=== PATIENT | female | born 1945 | race African-American/Black ===

== ENCOUNTER → 2017-10-14 | Day surgery (SDC) | payer MEDICARE ==
[2017-10-11 12:54] LABS: BASOPHILS # (AUTO) 0.1 (0.0-0.1); BASOPHILS % 0.8 % (0.0-1.0); HEMATOCRIT 38.1 % (34.2-44.1); HEMOGLOBIN 12.9 g/dL (12.0-16.0); LYMPHOCYTES % 31.7 % (18.0-39.1); MEAN CORPUSCULAR HEMOGLOBIN 29.4 pg (28-32); MEAN CORPUSCULAR HGB CONC 33.9 g/dL (31-35); MEAN CORPUSCULAR VOLUME 86.8 fL (81-99); MONOCYTES # (AUTO) 0.7 (0.2-0.8); MONOCYTES % 11.7 % (4.4-11.3); NEUTROPHILS # (AUTO) 3.5 (2.1-6.9); NEUTROPHILS % 55.6 % (38.7-80.0); PLATELET COUNT 220 x10e3/uL (140-360); RED BLOOD COUNT 4.39 x10e6/uL (3.6-5.1); RED CELL DISTRIBUTION WIDTH 13.9 % (11.7-14.4)
[2017-10-11 13:12] LABS: ANION GAP 13.5 mmol/L (8-16); BLOOD UREA NITROGEN 16 mg/dL (7-26); BUN/CREATININE RATIO 16 (6-25); CALCIUM 9.4 mg/dL (8.4-10.2); CARBON DIOXIDE 27 mmol/L (22-29); CHLORIDE 106 mmol/L (98-107); CREATININE, SERUM 1.02 mg/dL (0.57-1.11); EST GLOMERULAR FILTRATION RATE > 60 ML/MIN (60-); GLUCOSE 91 mg/dL (74-118); POTASSIUM 4.5 mmol/L (3.5-5.1); SODIUM 142 mmol/L (136-145)
--- NOTE | 2017-10-11 13:19 | Diagnostic Imaging Report ---
PROCEDURE: X-RAY CHEST, TWO VIEWS COMPARISON: None. INDICATIONS: PRE OPERATIVE CHEST FOR KNEE SURGERY FINDINGS: LUNGS: No mass or infiltrate. Pulmonary vascular markings are normal. PLEURA: No effusions or pneumothorax. HEART \T\ MEDIASTINUM: The heart is top normal in size. BONES \T\ SOFT TISSUES: Linear structure in the anterior upper abdomen measures 2.3 cm in length, visualized only on the lateral image and may or may not be within the patient. The osseous structures are unremarkable. CONCLUSION: No acute thoracic abnormality. Radiodensity in the upper anterior abdomen of uncertain etiology. Dictated by: Sabas Banda M.D. on 10/11/2017 at 13:29 Electronically approved by: Sabas Banda M.D. on 10/11/2017 at 13:29
[~2017-10-14] MED LIST: ACIDOPHILUS PO; BIOTIN2500 MCG PO; BUPIVACAINE HCL 0.5% INJ 30 ML VIAL INJ ONE; CALCIUM 600 +1 EAC2 PO; CEFAZOLIN SOD 2 GM/D5W 50ML 50 ML IV ONE; CENTRUM SILVER1 EAC3 PO; DEXAMETHASONE SOD PHOS INJ 4 MG/ML VIAL ONE; EVENING PRIMRO1 EACH PO; EVISTA60 MG PO; FENTANYL CITRATE/PF 100MCG/2 ML INJ ONE; FEOSOL PO; HYDROCHLOROTHIAZIDE PO; HYDROXYCHLOROQ200 MG PO; LIDOCAINE HCL 2% LOCAL INJ 5 ML SDV VIAL INJ ONE; MORPHINE SULFATE 2 MG/ML SYR ONE; OMEGA 3 FISH OIL PO; ONDANSETRON HCL INJ 2 MG/ML VIAL ONE; PANTOPRAZOLE SO40 MG PO; POTASSIUM CHLO20 ME1 PO; PROPOFOL IV EMULSION 10 MG/ML 20 ML VIAL ONE; SEVOFLURANE INHAL SOLN 250 ML PEN BTL ONE; ULTRAM 50MG50 MG PO; ZOLPIDEM TARTRA10 MG PO
--- OUTSIDE RECORDS SUMMARY | 2017-10-14 10:22 | XMS REPORT ---
Author Author [facility] Address Unknown Phone Unavailable Care Team Providers Care Heddler Name Role Phone KEITH KELLY Unavailable Unavailable Problems This patient has no known problems. Allergies, Adverse Reactions, Alerts This patient has no known allergies or adverse reactions. Medications This patient has no known medications. Results Test Description Test Time Test Comments Text Results Atomic Results Result Comments CHEST 2 VIEWS [place] [address] Patient Name: JOSE RAUL VALDEZ MR #: [id number] : 1945 Age/Sex: 72/F Req #: [id number] Adm Physician: Ordered by: KEITH KELLY MD Report #: [id number] Location: OR Room/Bed: Procedure: [id number] DX/CHEST 2 VIEWS Exam Date: 10/11/17 Exam Time: 1230 REPORT STATUS: Signed PROCEDURE: X-RAY CHEST, TWO VIEWS COMPARISON: None. INDICATIONS: PRE OPERATIVE CHEST FOR KNEE SURGERY FINDINGS: LUNGS: No mass or infiltrate. Pulmonary vascular markings are normal. PLEURA: No effusions or pneumothorax. HEART T MEDIASTINUM: The heart is top normal in size. BONES T SOFT TISSUES: Linear structure in the anterior upper abdomen measures 2.3 cm in length, visualized only on the lateral image and may or may not be within the patient. The osseous structures are unremarkable. CONCLUSION: No acute thoracic abnormality. Radiodensity in the upper anterior abdomen of uncertain etiology. Dictated by: Lucinda Banda M.D. on 10/11/2017 at 13:29 Electronically approved by: Lucinda Banda M.D. on 10/11/2017 at 13:29 Dictated By: LUCINDA BANDA MD [id number] Transcribed By: EVIN on 10/11 1329 COPY TO: KEITH KELLY MD
--- NOTE | 2017-10-15 19:34 | Operative Report ---
DATE OF PROCEDURE: October 14, 2017 PREOPERATIVE DIAGNOSES 1. Left medial meniscus tear, left knee. 2. Degenerative joint disease of the knee. POSTOPERATIVE DIAGNOSES 1. Left medial meniscus tear, left knee. 2. Degenerative joint disease of the knee. OPERATION/PROCEDURE PERFORMED: 1. Left knee examination under anesthesia. 2. Left knee arthroscopy. 3. Left knee partial medial meniscectomy. 4. Left knee chondroplasty of patella, the trochlea, the medial femoral condyle and medial tibial plateau. CRIMP SETTER: None. ANESTHESIA: General endotracheal intubation anesthesia. IV FLUIDS: Per the anesthesia record. BRIEF DESCRIPTION OF THE PATIENT'S OPERATIVE PROCEDURE: Ms. Mathur was taken to the operating room and placed in the supine position on the operating room table. Following induction of general anesthesia as well as endotracheal intubation, the patient's left lower extremity was examined under anesthesia. She was found to have a mild effusion within the knee joint but an otherwise ligamentously stable knee. The patient's lower extremity was prepped and draped in standard surgical fashion. A 2 portal technique used to provide this patient arthroscopic evaluation of the knee joint. Examination of the suprapatellar pouch, medial and lateral gutters found no evidence of loose bodies. There was, however, evidence of chondromalacia of the patellar and trochlear surfaces. The scope was advanced in the medial compartment and examination of the medial compartment demonstrated a torn and macerated posterior horn and medial meniscus. There was also chondromalacia of articulating surfaces. A combination of biting forceps and motorized shaver were used to resect the torn portion of meniscus. Chondroplasties of the medial femoral condyle and medial tibial plateau were performed at this time. The scope was then advanced into the intercondylar notch and the anterior cruciate ligament was identified and found to be intact. Scope was advanced in lateral compartment. Patient was found to have a lateral meniscus with normal frame. There was no evidence of chondromalacia. The scope was then placed in the suprapatellar pouch and chondroplasty of patella and trochlea were performed. The knee was then deflated with sterile normal saline. Each of the portal sites were closed using 4-0 nylon suture. The portal sites as well as the knee itself were injected with 1/2 percent Marcaine with epinephrine. Sterile dressings were applied and the patient was awakened and taken to the post anesthesia care unit in stable condition. Job#: [id number]
== END | disposition home or self-care (01) ==
LOC: EDBD 10-12 12:00 → OR 10:20
PROVIDERS: ATTEND Specialist
DX: S83.242A Other tear of medial meniscus, current injury, left knee, initial encounter (principal); S83.222A Peripheral tear of medial meniscus, current injury, left knee, initial encounter; M17.12 Unilateral primary osteoarthritis, left knee; M10.062 Idiopathic gout, left knee; M22.42 Chondromalacia patellae, left knee; M32.9 Systemic lupus erythematosus, unspecified; K58.9 Irritable bowel syndrome, unspecified; K21.9 Gastro-esophageal reflux disease without esophagitis; I44.0 Atrioventricular block, first degree; X58.XXXA Exposure to other specified factors, initial encounter; Z01.810 Encounter for preprocedural cardiovascular examination; Z01.812 Encounter for preprocedural laboratory examination; Z01.818 Encounter for other preprocedural examination
CPT/HCPCS: 29881; 36415; 71046; 80048; 85025; 93005; J1100; J2001; J2270; J2405